=== PATIENT | female | born 2000 | race American Indian/Alaskan Native ===

== ENCOUNTER 2018-03-20 15:56 | Emergency (ER) | payer BC ==
[2018-03-20 17:22] LABS: Hematocrit 33.3 % (30.3-42.9); Hemoglobin 11.9 gm/dl (10.1-14.3); Mean Corpuscular HGB Conc 36 % (30-34); Platelet Count 252 K/mm3 (140-440); Red Blood Count 5.54 M/mm3 (3.65-5.03); Red Cell Distribution Width 18.6 % (13.2-15.2)
[2018-03-20 17:25] LABS: Mean Corpuscular Hemoglobin 21 pg (28-32); Mean Corpuscular Volume 60 fl (79-97)
[2018-03-20 17:28] LABS: Bilirubin,Urine NEG (Negative); Blood,Urine NEG (Negative); Color,Urine Yellow (Yellow); Mucus,Urine 2+ /HPF
[2018-03-20 17:43] LABS: Alanine Aminotransferase 8 units/L (7-56); Albumin 4.9 g/dL (3.9-5); BUN/Creatinine Ratio 11; Blood Urea Nitrogen 9 mg/dL (7-17); Calcium 9.5 mg/dL (8.4-10.2); Hemolysis Index 2
[2018-03-20 18:32] LABS: Basophils % (Manual) 0 % (0.0-1.8); Eosinophils % (Manual) 0 % (0.0-4.3); Total Cells Counted 100
[2018-03-20 18:33] LABS: Hypochromasia 2+; Target Cells 2+
[2018-03-20 18:34] LABS: Large Platelets 1+; Platelet Estimate Consistent w Auto
[2018-03-20] MEDS ORDERED: TYLENOL PO ONE (19:29)
--- NOTE | 2018-03-20 21:04 | Emergency Department Report ---
HPI - General Chief Complaint: Abdominal Pain Time Seen by Provider: 03/20/18 20:27 - HPI HPI: 17-year-old female presents to the emergency department with complaint of a one-week history of right sided pelvic cramping pain. She denies any vaginal bleeding, vaginal discharge, dysuria, fever. She took some Tylenol for her discomfort without any relief. She denies any past medical history. She went to see a nurse practitioner through the [facility]. No recent travel or sick contacts at home. ED Past Medical Hx - Past Medical History Previous Medical History?: No - Surgical History Past Surgical History?: No - Social History Smoking Status: Never Smoker Substance Use Type: None - Medications Home Medications: Home Medications Medication Instructions Recorded Confirmed Last Taken Type HYDROcodone/APAP 5-325 [[place] 1 each PO Q6HR PRN #10 tablet 03/21/18 Unknown Rx 5/325] ED Review of Systems ROS: Stated complaint: ABD PAIN Other details as noted in HPI Comment: All other systems reviewed and negative Constitutional: denies: chills, fever Eyes: denies: eye pain, eye discharge, vision change ENT: denies: ear pain, throat pain Respiratory: denies: cough, shortness of breath, wheezing Cardiovascular: denies: chest pain, palpitations Gastrointestinal: nausea. denies: vomiting Genitourinary: other (pelvic pain). denies: dysuria, discharge Musculoskeletal: denies: back pain, joint swelling, arthralgia Skin: denies: rash, lesions Neurological: denies: headache, weakness, paresthesias Physical Exam - Physical Exam Vital Signs: Vital Signs 03/20/18 16:40 Temperature 98.6 F Pulse Rate 77 Respiratory 16 Rate Blood Pressure 125/75 O2 Sat by Pulse 100 Oximetry Physical Exam: GENERAL: The patient is well-developed well-nourished. HENT: Normocephalic. Atraumatic. Patient has moist mucous membranes. EYES: Extraocular motions are intact. Pupils equal reactive to light bilaterally. NECK: Supple. Trachea is midline. CHEST/LUNGS: Clear to auscultation. There is no respiratory distress noted. HEART/CARDIOVASCULAR: Regular. There is no tachycardia. There is no murmur. ABDOMEN: Abdomen is soft, nontender. No guarding. No rebound tenderness. Patient has normal bowel sounds. There is no abdominal distention. SKIN: Skin is warm and dry. NEURO: The patient is awake, alert, and oriented. The patient is cooperative. The patient has no focal neurologic deficits. The patient has normal speech. MUSCULOSKELETAL: There is no tenderness or deformity. There is no limitation range of motion. There is no evidence of acute injury. ED Course Vital Signs 03/20/18 16:40 Temperature 98.6 F Pulse Rate 77 Respiratory 16 Rate Blood Pressure 125/75 O2 Sat by Pulse 100 Oximetry ED Medical Decision Making - Lab Data Result diagrams: 03/20/18 16:50 03/20/18 16:50 - Radiology Data Radiology results: report reviewed PROCEDURE: US TRANSVAGINAL TECHNIQUE: Real-time transvaginal sonography in multiple planes of the pelvis was performed with image documentation. This examination was performed without Doppler. Vascular abnormalities, including ovarian torsion, will not be detectable without Doppler evaluation. CPT 89999 HISTORY: right sided pelvic pain COMPARISON: No prior studies are available for comparison. FINDINGS: Uterus is anteverted and measures 8.3 x 4.4 x 5.9 centimeters. Endometrium is 11 millimeters in thickness. There are no focal lesions. Bilateral ovaries demonstrate normal echotexture and normal Doppler flow. There is no free fluid in the pelvic cavity. IMPRESSION: Endometrium is 11 millimeters in thickness. Otherwise negative study.. Transcribed By: [facility] Dictated By: ELBA CHAMBERLAIN Electronically Authenticated By: ELBA CHAMBERLAIN Signed Date/Time: 03/20/18 6094 - Medical Decision Making Patient complains of a weeklong pain towards the right groin and/or pelvis. There is no palpable bulge or hernia and difficult to reproduce pain in this area. She has absolutely no discomfort to palpation of the right lower quadrant of the abdomen or flank. Labs have been unremarkable including no leukocytosis, normal belly labs, normal electrolytes. Urinalysis does not show any urinary tract infection and the patient is not . Transvaginal ultrasound was done that was essentially normal without any sign of ovarian torsion, cysts, malignancy or any other acute process. Abdominal x-ray shows nonspecific nonobstructive bowel gas and some stool. Vital signs stable throughout her ED course included being afebrile. Since patient is afebrile, does not have any leukocytosis, and has no pain to palpation of the abdomen, it is low suspicion for appendicitis and I do not feel that any CT imaging is necessary at this time. However we had a long appendicitis talk and she understands to return to the emergency department for CT imaging if she starts having any right lower quadrant abdominal pain, develops any fever, or with any acute distress. - Differential Diagnosis ovarian torsion, ovarian cyst, appendicitis, colitis, constipation, UTI Critical Care Time: No Critical care attestation.: If time is entered above; I have spent that time in minutes in the direct care of this critically ill patient, excluding procedure time. ED Disposition Clinical Impression: Right groin pain, Pelvic pain Disposition: TO HOME OR SELFCARE Is pt being admited?: No Condition: Stable Instructions: Chronic Pelvic Pain in Women (ED), Groin Pain (ED) Additional Instructions: Please follow-up with your primary care physician in the next few days. Return to the emergency Department with any worsening of your symptoms or any acute distress.You have been prescribed a medication that is sedating and therefore should not be taken prior to driving, working, and responsible for children and in no way should be mixed with alcohol of any quantity. Prescriptions: HYDROcodone/APAP 5-325 [[place] 5/325] 1 each PO Q6HR PRN #10 tablet PRN Reason: Pain Referrals: [facility] [Outside] - 3-5 Days PRIMARY CAREMD [Primary Care Provider] - 3-5 Days PEPE DEL ROSARIO MD [Staff Physician] - 3-5 Days
[2018-03-20 21:43] LABS: HCG Qualitative,Urine Negative (Negative)
--- NOTE | 2018-03-20 23:19 | Ultrasound Report ---
FINAL REPORT PROCEDURE: US TRANSVAGINAL TECHNIQUE: Real-time transvaginal sonography in multiple planes of the pelvis was performed with image documentation. This examination was performed without Doppler. Vascular abnormalities, including ovarian torsion, will not be detectable without Doppler evaluation. CPT 76002 HISTORY: right sided pelvic pain COMPARISON: No prior studies are available for comparison. FINDINGS: Uterus is anteverted and measures 8.3 x 4.4 x 5.9 centimeters. Endometrium is 11 millimeters in thickness. There are no focal lesions. Bilateral ovaries demonstrate normal echotexture and normal Doppler flow. There is no free fluid in the pelvic cavity. IMPRESSION: Endometrium is 11 millimeters in thickness. Otherwise negative study..
--- NOTE | 2018-03-20 23:20 | Ultrasound Report ---
FINAL REPORT PROCEDURE: US PELVIS DUPLEX DOPPLER COMP TECHNIQUE: Real-time transabdominal sonography in multiple planes of pelvis was performed with image documentation. This examination was performed without Doppler. Vascular abnormalities, including ovarian torsion, will not be detectable without Doppler evaluation. CPT 86103 HISTORY: right sided pelvic pain COMPARISON: No prior studies are available for comparison. FINDINGS: Uterus is anteverted and measures 8.3 x 4.4 x 5.9 centimeters. Endometrium is 11 millimeters in thickness. There are no focal lesions. Bilateral ovaries demonstrate normal echotexture and normal Doppler flow. There is no free fluid in the pelvic cavity. IMPRESSION: Endometrium is 11 millimeters in thickness. Otherwise negative study..
[2018-03-20] MEDS ORDERED: NORCO 5/325 PO ONE (23:44)
--- NOTE | 2018-03-20 23:58 | XRay Report ---
FINAL REPORT PROCEDURE: XR ABDOMEN 2V TECHNIQUE: Abdominal series, including supine and upright AP views. HISTORY: Abd pain COMPARISON: No prior studies are available for comparison. FINDINGS: Bowel gas pattern:Intestinal gas is distributed predominantly in nondistended colon. There is mild degree residual stool.. Masses or calcifications:None . Bony structures:No significant abnormality . Pneumoperitoneum:None . Other:No significant findings . IMPRESSION: No acute abnormality.
[2018-03-21 00:23] VITALS: BP 128/78
== END 2018-03-21 00:25 | disposition home or self-care (01) ==
LOC: ED 15:56
DX: R10.30 Lower abdominal pain, unspecified (principal); R10.2 Pelvic and perineal pain
CPT/HCPCS: 36415; 74019; 76830; 80053; 81001; 81025; 85007; 85025; 93975